=== PATIENT | male | born 1980 | race Caucasian/White ===

== ENCOUNTER → 2021-05-10 | Day surgery (SDC) | payer MEDICARE, OTHER ==
[2021-05-07 16:10] VITALS: BMI 30.8
[~2021-05-10] MED LIST: LACTATED RINGERS 1,000 ML IV SCH; LIDOCAINE 1% (10MG/ML) FOR IV START INTRADERMA ONE; LIDOCAINE 1% INJ 10MG/ML (20 ML MDV) ONE; PROPOFOL 10 MG/ML 20 ML VIAL IV ONE
[2021-05-10 10:55] VITALS: TEMP 97.5
--- NOTE | 2021-05-10 12:37 | P.PCN ---
Date of Procedure: 05/10/21 Implants: BRIEF HISTORY: Patient is a 41-year-old, pleasant,-year-old white male scheduled for an upper endoscopy as a part of evaluation of long-standing history of GERD. His been on omeprazole 20 mg daily for almost 5 years and did well. However started having the fact the symptoms and hence medication related to Protonix 40 mg twice daily and lately has been having daily breakthrough symptoms.. PROCEDURE PERFORMED: Esophagogastroduodenoscopy. With biopsy PREOPERATIVE DIAGNOSIS: Long-standing history of GERD. IV sedation per anesthesia. PROCEDURE: After informed consent was obtained, the patient was brought into the endoscopy unit. IV sedation was administered by Anesthesia under continuous monitoring. Initially the Olympus GIF-140 video endoscope was inserted into the mouth. Esophagus intubated without any difficulty. It was gradually advanced into the stomach and duodenum and carefully examined. The bulb and the second part of the duodenum appeared normal. The scope at this time was withdrawn to the stomach, adequately insufflated with air, and upon careful examination, mucosa of the antrum, had mild gastritis and biopsies were done from this area. The body, cardia and the fundus appeared normal. The scope was then withdrawn into the esophagus. The GE junction was located at 43 cm from the incisors. The GE junction appeared slightly irregular but there was no evidence of esophagitis or Simon's esophagus. The rest of the esophagus appeared normal. Biopsies were done from the distal esophagus and the patient tolerated the procedure well. IMPRESSION: 1. Mild antral gastritis. 2. Irregular GE junction but no evidence of esophagitis or Simon's esophagus. RECOMMENDATIONS: The findings of this examination were discussed with the patient as well as his family. He was advised to follow with the biopsy results. He will continue with Protonix 40 mg twice daily half hour before breakfast and dinnertime and and Pepcid 40 mg at bedtime for more aggressive acid suppressive therapy..
[2021-05-10 12:56] VITALS: BP 133/80; PULSE 51; RESP 16
== END ==
LOC: ORWHC2ENDO 10:23
PROVIDERS: ATTEND Internal Medicine Gastroenterology
DX: K21.9 Gastro-esophageal reflux disease without esophagitis (principal); K29.50 Unspecified chronic gastritis without bleeding; G47.33 Obstructive sleep apnea (adult) (pediatric); Z79.899 Other long term (current) drug therapy; Z98.890 Other specified postprocedural states
CPT/HCPCS: 88305; 43239; J2001; J2704

== ENCOUNTER 2022-12-17 01:09 | Emergency (ER) | payer MEDICARE, OTHER ==
[2022-12-17 01:16] VITALS: TEMP 97.6
[2022-12-17] MEDS ORDERED: IPRATROPIUM-ALBUTEROL 3 ML NEB INHALATION STA (01:26)
--- NOTE | 2022-12-17 01:30 | ED ---
SOB HPI - General Chief Complaint: Shortness of Breath Stated Complaint: Difficulty breathing Time Seen by Provider: 12/17/22 01:10 Source: patient, family, RN notes reviewed Mode of arrival: ambulatory Limitations: no limitations - History of Present Illness Initial Comments: This is a 42-year-old male who presents to the emergency department for shortn ess of breath and coughing. States that the symptoms started about 4 hours ago. The cough is productive. He was trying to get ready to go to bed when his symptoms began, and he has since been unable to sleep. Feels like he is getting phlegm stuck in his throat, also contributing to the shortness of breath. When asked about chest pain, he states "my chest feels like it does when I am in a sauna". Denies any sick contacts. Earlier in the day he did not experience any symptoms. Denies any history of asthma or other upper respiratory illnesses. Patient is a daily smoker. Denies any fevers, chills, sore throat, palpitations, abdominal pain, nausea, vomiting, diarrhea, back pain, or headaches. MD Complaint: shortness of breath, cough - Related Data Home Medications Medication Instructions Recorded Confirmed Cetirizine HCl 10 mg PO DAILY 04/07/14 05/10/21 Magnesium 250 mg PO DAILY 04/07/14 05/10/21 Cholecalciferol [Vitamin D3 (25 50 mcg PO DAILY 05/07/21 05/10/21 Mcg = 1000 Iu)] Diclofenac Potassium [Cambia] 50 mg PO DAILY PRN 05/07/21 05/10/21 Fluticasone Nasal [place] [Flonase 2 spray EA NOSTRIL DAILY 05/07/21 05/10/21 Nasal [place]] Galcanezumab-Gnlm [Emgality Pen] 120 mg SQ Q30D 05/07/21 05/10/21 Loperamide [Imodium] 2 mg PO DAILY 05/07/21 05/10/21 Pantoprazole [Protonix] 40 mg PO BID 05/07/21 05/10/21 Rizatriptan Benzoate [Maxalt] 10 mg PO DAILY PRN 05/07/21 05/10/21 Sildenafil Citrate [Viagra] 50 mg PO ONCE PRN 05/07/21 05/10/21 Previous Rx's Medication Instructions Recorded Albuterol Sulfate [Albuterol 1 puff PO Q4-6H PRN #8.5 gm 12/17/22 Sulfate Hfa] Azithromycin [Zithromax] 250 mg PO DIRECTED 5 Days #6 tab 12/17/22 Promethazine/Dextromethorphan 5 ml PO Q4-6H PRN #473 ml 12/17/22 [Promethazine-Dm Syrup] predniSONE 50 mg PO DAILY 5 Days #5 tab 12/17/22 Allergies Allergy/AdvReac Type Severity Reaction Status Date / Time No Known Allergies Allergy Verified 05/10/21 10:45 Review of Systems ROS Statement: Those systems with pertinent positive or pertinent negative responses have been documented in the HPI. ROS Other: All systems not noted in ROS Statement are negative. Past Medical History Past Medical History: GERD/Reflux, Sleep Apnea/CPAP/BIPAP Additional Past Medical History / Comment(s): fx coccyx since resolved,migraines, uses mouth guard for sleep apnea History of Any Multi-Drug Resistant Organisms: None Reported Additional Past Surgical History / Comment(s): rhinoplasty 2009, lipoma removed x2, cyst removed, pilonidal cyst removed, Past Anesthesia/Blood Transfusion Reactions: No Reported Reaction Past Psychological History: Anxiety, Depression, PTSD Smoking Status: Former smoker Past Alcohol Use History: Occasional Past Drug Use History: Marijuana General Exam Limitations: no limitations General appearance: alert, in no apparent distress Head exam: Present: atraumatic, normocephalic, normal inspection Respiratory exam: Present: normal lung sounds bilaterally. Absent: respiratory distress, wheezes, rales, rhonchi, stridor Cardiovascular Exam: Present: regular rate, normal rhythm, normal heart sounds. Absent: systolic murmur, diastolic murmur, rubs, gallop, clicks Neurological exam: Present: alert, oriented X3, CN II-XII intact Psychiatric exam: Present: normal affect, normal mood Skin exam: Present: warm, dry, intact, normal color. Absent: rash Course Vital Signs 12/17/22 12/17/22 12/17/22 01:13 01:23 01:51 Temperature 97.6 F Pulse Rate 67 70 Respiratory 22 20 Rate Blood Pressure 156/123 O2 Sat by Pulse 99 Oximetry 12/17/22 12/17/22 01:55 03:23 Temperature Pulse Rate 71 70 Respiratory 18 Rate Blood Pressure 144/96 O2 Sat by Pulse 95 Oximetry Medical Decision Making - Medical Decision Making This is a 42-year-old male who presents to the emergency department for coughing and difficulty breathing. Was pt. sent in by a medical professional or institution? @ -No Did you speak to anyone other than the patient for history? @ -No Did you review nursing and triage notes? @ -Yes, and I agree, it is accurate with regards to the patient's symptoms. Were old charts reviewed? @ -No Differential Diagnosis? @ -Differential Dyspnea: Coronary syndrome, arrhythmia, tamponade, asthma, COPD, pulmonary embolism, pneumonia, pneumothorax, pulmonary effusion, anaphylaxis, diabetic ketoacidosis, flailed chest, pulmonary contusion, diaphragmatic rupture, anemia, neuromuscular, this is not meant to be an all-inclusive list. EKG interpreted by me (3pts min.)? @ -EKG interpreted by me demonstrating the following: Sinus rhythm. Ventricular rate 64 beats per minute, IA interval 193 ms, QRS duration 113 ms, QTC 413 ms. X-rays interpreted by me (1pt min.)? @ -Chest x-ray obtained, my interpretation identifies no localized consolidations or infiltrates. CT interpreted by me (1pt min.)? @ -Not obtained U/S interpreted by me (1pt. min.)? @ -Not obtained What testing was considered but not performed? (CT, X-rays, U/S, labs)? Why? @ -None What meds were considered but not given? Why? @ -None Did you discuss the management of the patient with other professionals? @ -No Did you reconcile home meds? @ -No Was smoking cessation discussed for >3mins.? @ -I discussed smoking cessation for greater than 3 minutes. The risk of smoking were discussed with the patient including but not limited to risks of cancer, stroke, coronary artery disease and COPD. Also discussed with patient were multiple methods of quitting smoking. Lastly we discussed the financial cost of smoking. Was critical care preformed (if so, how long)? @ -No Were there social determinants of health that impacted care today? How? (Homelessness, low income, unemployed, alcoholism, drug addiction, transportation, low edu. Level, literacy, decrease access to med. care, [facility], rehab)? @ -No Was there de-escalation of care discussed even if they declined? (Discuss DNR or withdrawal of care, Hospice)? @ -No What co-morbidities impacted this encounter? (DM, HTN, Smoking, COPD, CAD, Cancer, CVA, Hep., AIDS, mental health diagnosis, sleep apnea, morbid obesity)? @ -Smoking Was patient admitted / discharged? @ -Discharged. Lab work obtained and found to be nonactionable. Covid, influenza, and RSV testing were negative. Chest x-ray reveals no acute process. Patient was given a DuoNeb breathing treatment with significant relief in symptoms. On reevaluation he was found to be sleeping comfortably. Patient overall felt significantly improved and felt stable for discharge home. Symptoms likely related to a tracheobronchitis. Prescription for azithromycin, prednisone, albuterol inhaler, and promethazine DM cough syrup provided with dosing instructions reviewed. Otherwise advised close follow-up with his primary care provider. Undiagnosed new problem with uncertain prognosis? @ -None Drug Therapy requiring intensive monitoring for toxicity (Heparin, Nitro, Insulin, Cardizem)? @ -None Were any procedures done? @ -None Diagnosis/symptom? @ -Tracheobronchitis Acute, or Chronic, or Acute on Chronic? @ -Acute Uncomplicated (without systemic symptoms) or Complicated (systemic symptoms)? @ -Uncomplicated Side effects of treatment? @ -None Exacerbation, Progression, or Severe Exacerbation] @ -Not applicable Poses a threat to life or bodily function? @ -No Return precautions reviewed in depth, the patient is instructed to return to the emergency department with any new, worsening, or concerning symptoms. Patient verbalized understanding. This case was discussed in detail with the attending ED physician, Dr. Tapia. Presentation, findings, and treatment plan discussed in detail as well. - Lab Data Result diagrams: 12/17/22 01:39 12/17/22 01:39 Lab Results 12/17/22 12/17/22 12/17/22 Range/Units 01:39 01:39 01:39 WBC 8.0 (3.8-10.6) k/uL RBC 5.21 (4.30-5.90) m/uL Hgb 15.2 (13.0-17.5) gm/dL Hct 45.1 (39.0-53.0) % MCV 86.5 (80.0-100.0) fL MCH 29.1 (25.0-35.0) pg MCHC 33.7 (31.0-37.0) g/dL RDW 12.5 (11.5-15.5) % Plt Count 252 (150-450) k/uL MPV 8.0 Neutrophils % 57 % Lymphocytes % 32 % Monocytes % 7 % Eosinophils % 3 % Basophils % 0 % Neutrophils # 4.6 (1.3-7.7) k/uL Lymphocytes # 2.5 (1.0-4.8) k/uL Monocytes # 0.6 (0-1.0) k/uL Eosinophils # 0.2 (0-0.7) k/uL Basophils # 0.0 (0-0.2) k/uL PT 10.1 (9.0-12.0) sec INR 1.0 (<1.2) APTT 24.5 (22.0-30.0) sec Sodium 139 (137-145) mmol/L Potassium 3.5 (3.5-5.1) mmol/L Chloride 105 (98-107) mmol/L Carbon Dioxide 27 (22-30) mmol/L Anion Gap 7 mmol/L BUN 15 (9-20) mg/dL Creatinine 0.89 (0.66-1.25) mg/dL Est GFR (CKD-EPI)AfAm >90 (>60 ml/min/1.73 sqM) Est GFR (CKD-EPI)NonAf >90 (>60 ml/min/1.73 sqM) Glucose 105 H (74-99) mg/dL Calcium 9.3 (8.4-10.2) mg/dL Total Bilirubin 0.4 (0.2-1.3) mg/dL AST 25 (17-59) U/L ALT 19 (4-49) U/L Alkaline Phosphatase 80 (38-126) U/L Troponin I (0.000-0.034) ng/mL Total Protein 6.9 (6.3-8.2) g/dL Albumin 4.1 (3.5-5.0) g/dL Influenza Type A (PCR) (Not Detectd) Influenza Type B (PCR) (Not Detectd) RSV (PCR) (Not Detectd) SARS-CoV-2 (PCR) (Not Detectd) 12/17/22 12/17/22 Range/Units 01:39 01:39 WBC (3.8-10.6) k/uL RBC (4.30-5.90) m/uL Hgb (13.0-17.5) gm/dL Hct (39.0-53.0) % MCV (80.0-100.0) fL MCH (25.0-35.0) pg MCHC (31.0-37.0) g/dL RDW (11.5-15.5) % Plt Count (150-450) k/uL MPV Neutrophils % % Lymphocytes % % Monocytes % % Eosinophils % % Basophils % % Neutrophils # (1.3-7.7) k/uL Lymphocytes # (1.0-4.8) k/uL Monocytes # (0-1.0) k/uL Eosinophils # (0-0.7) k/uL Basophils # (0-0.2) k/uL PT (9.0-12.0) sec INR (<1.2) APTT (22.0-30.0) sec Sodium (137-145) mmol/L Potassium (3.5-5.1) mmol/L Chloride (98-107) mmol/L Carbon Dioxide (22-30) mmol/L Anion Gap mmol/L BUN (9-20) mg/dL Creatinine (0.66-1.25) mg/dL Est GFR (CKD-EPI)AfAm (>60 ml/min/1.73 sqM) Est GFR (CKD-EPI)NonAf (>60 ml/min/1.73 sqM) Glucose (74-99) mg/dL Calcium (8.4-10.2) mg/dL Total Bilirubin (0.2-1.3) mg/dL AST (17-59) U/L ALT (4-49) U/L Alkaline Phosphatase (38-126) U/L Troponin I <0.012 (0.000-0.034) ng/mL Total Protein (6.3-8.2) g/dL Albumin (3.5-5.0) g/dL Influenza Type A (PCR) Not Detected (Not Detectd) Influenza Type B (PCR) Not Detected (Not Detectd) RSV (PCR) Not Detected (Not Detectd) SARS-CoV-2 (PCR) Not Detected (Not Detectd) - Radiology Data Radiology results: report reviewed, image reviewed Disposition Clinical Impression: Nicotine dependence, Tracheobronchitis Disposition: HOME SELF-CARE Instructions (If sedation given, give patient instructions): Acute Bronchitis (ED) Additional Instructions: Return to the emergency department with any new, worsening, or concerning symptoms. Take the prednisone daily for 5 days. Take the antibiotic as prescribed for 5 days. You can use the cough medication and inhaler up to every 4-6 hours as needed. Follow up with your primary care provider in 1-2 days. Prescriptions: Albuterol Sulfate [Albuterol Sulfate Hfa] 1 puff PO Q4-6H PRN #8.5 gm PRN Reason: Shortness Of Breath predniSONE 50 mg PO DAILY 5 Days #5 tab Promethazine/Dextromethorphan [Promethazine-Dm Syrup] 5 ml PO Q4-6H PRN #473 ml PRN Reason: Cough Azithromycin [Zithromax] 250 mg PO DIRECTED 5 Days #6 tab Is patient prescribed a controlled substance at d/c from ED?: No Referrals: [facility],Clinic [Primary Care Provider] - 1-2 days
[2022-12-17 01:51] LABS: Basophils % (A) 0 %; Eosinophils # (A) 0.2 k/uL (0-0.7); Eosinophils % (A) 3 %; HCT 45.1 % (39.0-53.0); HGB 15.2 gm/dL (13.0-17.5); Lymphocytes # (A) 2.5 k/uL (1.0-4.8); Lymphocytes % (A) 32 %; MCH 29.1 pg (25.0-35.0); MCHC 33.7 g/dL (31.0-37.0); MCV 86.5 fL (80.0-100.0); Monocytes # (A) 0.6 k/uL (0-1.0); Monocytes % (A) 7 %; Neutrophils # (A) 4.6 k/uL (1.3-7.7); Neutrophils % (A) 57 %; Platelet Count 252 k/uL (150-450); RBC 5.21 m/uL (4.30-5.90); RDW 12.5 % (11.5-15.5)
[2022-12-17 02:02] LABS: ALT 19 U/L (4-49); AST 25 U/L (17-59); African American GFR (CKD) >90 (>60 ml/min/1.73 sqM); Albumin 4.1 g/dL (3.5-5.0); Alkaline Phosphatase 80 U/L (38-126); Anion Gap 7 mmol/L; Blood Urea Nitrogen 15 mg/dL (9-20); Calcium 9.3 mg/dL (8.4-10.2); Carbon Dioxide 27 mmol/L (22-30); Chloride 105 mmol/L (98-107); Glucose 105 mg/dL (74-99); Non-African American GFR(CKD) >90 (>60 ml/min/1.73 sqM); Potassium 3.5 mmol/L (3.5-5.1); Sodium 139 mmol/L (137-145); Total Bilirubin 0.4 mg/dL (0.2-1.3); Total Protein 6.9 g/dL (6.3-8.2)
[2022-12-17 02:22] LABS: Partial Thromboplastin Time 24.5 sec (22.0-30.0); Prothrombin Time 10.1 sec (9.0-12.0)
[2022-12-17] MEDS ORDERED: DEXAMETHASONE SOD PHOSPHATE 10 MG/ML 1 ML VIAL IM STA (03:11)
[2022-12-17] MEDS ORDERED: AZITHROMYCIN 500 MG TAB PO STA (03:11)
[2022-12-17 03:25] VITALS: BP 144/96; PULSE 70; RESP 18
--- NOTE | 2022-12-17 04:02 | XR ---
EXAMINATION TYPE: XR chest 2V DATE OF EXAM: 12/17/2022 COMPARISON: Prior chest x-ray December 14, 2012 HISTORY: Difficulty in breathing TECHNIQUE: Frontal and lateral views of the chest are obtained. FINDINGS: There is no focal air space opacity, pleural effusion, or pneumothorax seen. The cardiac silhouette size is stable and within normal limits. The osseous structures are intact. IMPRESSION: No acute cardiopulmonary process. No significant change from prior.
== END 2022-12-17 03:34 | disposition home or self-care (01) ==
LOC: EC 01:09
DX: F17.200 Nicotine dependence, unspecified, uncomplicated (principal); J40 Bronchitis, not specified as acute or chronic; K21.9 Gastro-esophageal reflux disease without esophagitis; G47.30 Sleep apnea, unspecified; Z86.59 Personal history of other mental and behavioral disorders; Z79.899 Other long term (current) drug therapy; Z20.822 Contact with and (suspected) exposure to COVID-19
CPT/HCPCS: 36415; 94640; 93005; 80053; 84484; 85025; 85610; 85730; 87636; 71046; 99285; 96372; J1100